=== PATIENT | female | born 1980 | race Hispanic/Latino ===

== ENCOUNTER 2020-10-14 13:49 | Outpatient (CLI) | payer OTHER ==
--- NOTE | 2020-10-14 14:51 | ULT ---
Exam: Transabdominal and endovaginal pelvic ultrasound HISTORY:Abnormal bleeding COMPARISON: None TECHNIQUE: Transabdominal and endovaginal imaging of the pelvis is performed. Ovaries are interrogate d with grayscale, color flow, Doppler imaging and spectral wave form analysis FINDINGS: Endovaginal images are suboptimal Uterus: There are multiple anechoic foci seen in the anterior uterine wall. Technical Aide reports that these anechoic foci may be near a scar. Uterus measurin.5 x 5.3 x 4.2 cm. Endometrium: Homogeneous echotexture. Endometrium diameter: 1.2 cm. Free fluid: None Right ovary: Normal echotexture Right ovary measurement: 3.2 x 2.0 x 2.7 cm Left ovary: Not seen Ovarian Doppler: There is vascular flow to the right ovary. IMPRESSION: 1. Homogeneous echotexture of the endometrium. 2. Anechoic foci in the anterior uterine myometrium, reportedly near section scar. Findings may represent postsurgical change. 3. Given patient's history, pelvic MRI may be beneficial to assess the endometrium as well as the ant erior uterine myometrium.
== END 2020-10-14 13:50 | disposition home or self-care (01) ==
LOC: BICULT 13:49
PROVIDERS: ATTEND Family Medicine
DX: N93.9 Abnormal uterine and vaginal bleeding, unspecified (principal); R93.89 Abnormal findings on diagnostic imaging of other specified body structures
CPT/HCPCS: 76856